=== PATIENT | female | born 1950 | race American Indian/Alaskan Native ===

== ENCOUNTER 2022-03-03 18:36 | Emergency (ER) | payer OTHER ==
[2022-03-03] MEDS ORDERED: Sodium Chloride 0.9% 10 ML Syringe FLUSH PRN (19:11)
[2022-03-03] MEDS ORDERED: Sodium Chloride 0.9% 1,000 ML IV ONE (19:11)
[2022-03-03] MEDS ORDERED: Iopamidol 755 Mg/ML 100 ML Bottle IVPUSH ONE (19:19)
[2022-03-03] MEDS ORDERED: Sodium Chloride 0.9% 10 ML Syringe FLUSH ONE (19:19)
[2022-03-03] MEDS ORDERED: Calcitonin (Salmon) 200 Units/ML 2 ML MDV SUBCUT STA (20:45)
[2022-03-03] MEDS ORDERED: Sodium Chloride 0.9% 1,000 ML IV SCH (20:45)
[2022-03-03] MEDS ORDERED: Zoledronic Acid 4 MG in Sodium Chloride 0.9% 100 ML IV STA (20:46)
[2022-03-03] MEDS ORDERED: 50% Dextrose in Water 50 ML Syringe IVPUSH STA (20:52)
[2022-03-03] MEDS ORDERED: Insulin Regular, Human 100 Units/ML 3 ML Vial IV STA (20:52)
[2022-03-03] MEDS ORDERED: Sodium Polystyrene Sulfonate 15 GM/60 ML Susp 60 ML Bot RECTAL ONE (20:54)
[2022-03-03] MEDS ORDERED: Sodium Bicarbonate 150 MEQ in Dextrose 5% in Water 1,000 ML IV ONE ×2 (20:56)
[2022-03-03] MEDS ORDERED: Magnesium Sulfate/Water 2 GM in Premix Bag 1 BAG IV ONE (20:59)
[2022-03-03] MEDS ORDERED: Dextrose 10% in Water 1,000 ML IV SCH ×2 (21:00→22:15)
[2022-03-03] MEDS ORDERED: cefTRIAXone 1 GM in Sodium Chloride 0.9% 100 ML IV STA (21:01)
[2022-03-03] MEDS ORDERED: Sodium Polystyrene Sulfonate 15 GM/60 ML Susp 60 ML Bot ONE ×3 (21:13→21:51)
[2022-03-03] MEDS ORDERED: Insulin Regular, Human 100 Units/ML 3 ML Vial ONE (21:13)
[2022-03-03] MEDS ORDERED: Sodium Chloride 0.9% 100 ML ONE (21:32)
[2022-03-03] MEDS ORDERED: cefTRIAXone 1 GM Vial ONE (21:32)
[2022-03-03] MEDS ORDERED: Sodium Chloride 0.9% 1,000 ML ONE (21:32)
[2022-03-03] MEDS ORDERED: LORazepam 2 MG/ML SDV IVPUSH STA (23:09)
[2022-03-03] MEDS ORDERED: 50% Dextrose in Water 50 ML Syringe ONE (23:26)
[2022-03-04 00:28] LABS: CORONAVIRUS COVID-19 NAA NEGATIVE (NEGATIVE)
[2022-03-04] MEDS ORDERED: LORazepam 2 MG/ML SDV ONE (03:16)
[2022-03-04] MEDS ORDERED: LORazepam 2 MG/ML SDV IVPUSH ONE (04:52)
== END 2022-03-04 03:20 ==
LOC: EDBD → JD.ED 18:36
DX: K85.90 Acute pancreatitis without necrosis or infection, unspecified (principal); N39.0 Urinary tract infection, site not specified; C79.9 Secondary malignant neoplasm of unspecified site; E11.10 Type 2 diabetes mellitus with ketoacidosis without coma; E87.5 Hyperkalemia; E83.52 Hypercalcemia; E83.42 Hypomagnesemia; E05.90 Thyrotoxicosis, unspecified without thyrotoxic crisis or storm; F17.210 Nicotine dependence, cigarettes, uncomplicated; Z88.0 Allergy status to penicillin; Z20.822 Contact with and (suspected) exposure to COVID-19
CPT/HCPCS: 0241U; 36415; 70450; 71045; 74177; 80048; 80053; 80143; 80179; 80306; 80307; 81001; 82947; 83605; 83690; 83735; 83880; 84145; 84443; 84484; 85007; 85027; 85379; 85610; 85730; 86140; 87040; 87086; 87088; 87186; 93005; 96361; 96365; 96366; 96367; 96368; 96375; 96376; 99285; A9270; J0630; J0696; J2060; J3475; J3489; J3490; J7030; J7042; J7060; Q9967; 93010

== ENCOUNTER 2022-03-26 20:32 | Inpatient (IN) | payer OTHER ==
[2022-03-26] MEDS ORDERED: Sodium Chloride 0.9% 10 ML Syringe FLUSH PRN (21:06)
[2022-03-26] MEDS ORDERED: Sodium Chloride 0.9% 1,000 ML IV SCH (21:15)
[2022-03-26 22:03] LABS: ESTIMATED GFR 49 mL/min (>60)
[2022-03-26] MEDS ORDERED: Sodium Chloride 0.9% 1,000 ML IV ONE (22:49)
[2022-03-26 22:50] LABS: CORONAVIRUS COVID-19 NAA NEGATIVE (NEGATIVE)
[2022-03-26] MEDS ORDERED: cefTRIAXone 2 GM in Sodium Chloride 0.9% 100 ML IV ONE (23:46)
[2022-03-27] MEDS ORDERED: Lactated Ringers 1,000 ML IV SCH (00:45)
[2022-03-27] MEDS ORDERED: Sodium Chloride 0.9% 1,000 ML IV SCH (01:30)
[2022-03-27] MEDS ORDERED: cefTRIAXone 2 GM in Sodium Chloride 0.9% 100 ML IV SCH (01:30)
[2022-03-27] MEDS ORDERED: Ondansetron 4 MG/2 ML SDV IVPUSH PRN (02:09)
[2022-03-27] MEDS: Morphine 2 MG/ML SYRINGE IVPUSH PRN ×2 (02:55→10:27)
[2022-03-27] MEDS: Sodium Chloride 0.9% 1,000 ML IV SCH ×2 (11:20→21:34)
[2022-03-27] MEDS: HYDROmorphone 1 MG/ML Syringe IVPUSH PRN ×3 (13:49→22:45)
[2022-03-27] MEDS: cefTRIAXone 2 GM in Sodium Chloride 0.9% 100 ML IV SCH (23:28)
[2022-03-28] MEDS: HYDROmorphone 1 MG/ML Syringe IVPUSH PRN ×6 (04:30→21:22)
[2022-03-28] MEDS: Sodium Chloride 0.9% 1,000 ML IV SCH ×2 (08:02→18:02)
[2022-03-29] MEDS: cefTRIAXone 2 GM in Sodium Chloride 0.9% 100 ML IV SCH (00:01)
[2022-03-29] MEDS: HYDROmorphone 1 MG/ML Syringe IVPUSH PRN ×8 (00:22→21:14)
[2022-03-29] MEDS: Sodium Chloride 0.9% 1,000 ML IV SCH ×2 (04:10→14:12)
[2022-03-29] MEDS: LORazepam 2 MG/ML SDV IVPUSH PRN ×2 (13:21→20:05)
[2022-03-30] MEDS: LORazepam 2 MG/ML SDV IVPUSH PRN ×4 (00:08→21:35)
[2022-03-30] MEDS: Sodium Chloride 0.9% 1,000 ML IV SCH (00:11)
[2022-03-30] MEDS: cefTRIAXone 2 GM in Sodium Chloride 0.9% 100 ML IV SCH (00:11)
[2022-03-30] MEDS: HYDROmorphone 1 MG/ML Syringe IVPUSH PRN ×5 (04:16→19:03)
[2022-03-31] MEDS: HYDROmorphone 1 MG/ML Syringe IVPUSH PRN ×4 (00:16→11:48)
[2022-03-31] MEDS: LORazepam 2 MG/ML SDV IVPUSH PRN ×2 (04:09→07:00)
== END 2022-03-31 12:53 | disposition swing bed (61) | DRG 641 ==
LOC: JD.ED 20:32 → JD.ICU 03-27 00:26 → EDBD 03-27 00:26 → JD.MS 03-28 17:01
PROVIDERS: ADMIT Internal Medicine; ATTEND Pediatrics
DX: E83.52 Hypercalcemia (principal); N30.00 Acute cystitis without hematuria; C34.90 Malignant neoplasm of unspecified part of unspecified bronchus or lung; C79.51 Secondary malignant neoplasm of bone; E87.20 Acidosis, unspecified; C78.7 Secondary malignant neoplasm of liver and intrahepatic bile duct; Z51.5 Encounter for palliative care; Z66 Do not resuscitate; F17.210 Nicotine dependence, cigarettes, uncomplicated; Z20.822 Contact with and (suspected) exposure to COVID-19; F41.9 Anxiety disorder, unspecified; K21.9 Gastro-esophageal reflux disease without esophagitis; B96.20 Unspecified Escherichia coli [E. coli] as the cause of diseases classified elsewhere; E11.9 Type 2 diabetes mellitus without complications; Z88.0 Allergy status to penicillin; Z86.16 Personal history of COVID-19; Z98.51 Tubal ligation status
CPT/HCPCS: 0241U; 36415; 51702; 70450; 70450-26; 80053; 81001; 82140; 83605; 83690; 83735; 84484; 85025; 86140; 87040; 87086; 87088; 87186; 93005; 93010; 94761; 96361; 96365; 99285; 99285-25; J0696; J1170; J2060; J2270; J3490; J7030; J7120